=== PATIENT | male | born 1930 | race Caucasian/White ===

== ENCOUNTER 2017-03-27 11:59 | Observation (INO) | payer MEDICARE ==
[2017-03-27] MEDS ORDERED: Ondansetron INJ* 2 MG/ML VIAL IV ONE (12:34)
[2017-03-27] MEDS ORDERED: NS 0.9% 1000 ML* 1,000 ML IV ONE (12:34)
[2017-03-27 13:02] LABS: ABS Basophils 0 10^3/ul (0-0.2); ABS Eosinophils 0.1 10^3/ul (0-0.6); ABS Lymphocytes 1.3 10^3/ul (1.0-4.8); ABS Monocytes 0.8 10^3/ul (0-0.8); ABS Neutrophils 7.8 10^3/ul (1.5-7.7); ABS Nucleated RBC 0 10^3/ul; Eosinophil % 0.6 % (0-6); Hematocrit 34 % (42-52); Hemoglobin 11.7 g/dl (14.0-18.0); Lymphocyte % 13.3 % (25-47); Mean Corpuscular HGB Conc 35 g/dl (31-36); Mean Corpuscular Hemoglobin 32 pg (27-31); Mean Corpuscular Volume 91 fL (80-94); Mean Platelet Volume 7 um3 (7.4-10.4); Nucleated Red Blood Cells % 0; Platelet Count 196 10^3/ul (150-450); Red Blood Count 3.68 10^6/ul (4.0-5.4); Red Cell Distribution Width 13 % (10.5-15); White Blood Count 10.1 10^3/ul (3.5-10.8)
--- NOTE | 2017-03-27 13:20 | RAD ---
INDICATION: Weakness. COMPARISON: There are no prior studies available for comparison. TECHNIQUE: A portable view of the chest was obtained. FINDINGS: Cardiac and mediastinal contours appear to be within normal limits. There is elevation of the right hemidiaphragm. There is a faint infiltrate which projects over the right midlung. The lungs are otherwise clear. No pleural effusion is seen. IMPRESSION: SMALL RIGHT MIDLUNG INFILTRATE.
[2017-03-27] MEDS ORDERED: Azithromycin IV(*) 500 MG in NS 0.9% 250 ML* 250 ML IVPB ONE (13:38)
[2017-03-27] MEDS ORDERED: cefTRIAXone(*) 1 GM in NS 0.9% 50 ML* 50 ML IVPB ONE (13:38)
[2017-03-27 14:01] LABS: INR 0.98 (0.77-1.02)
[2017-03-27] MEDS ORDERED: Acetaminophen TAB* 325 MG PO PRN (14:08)
[2017-03-27 14:21] LABS: Urine Appearance Clear; Urine Blood 2+ (Negative); Urine Color Yellow; Urine Ketones Negative (Negative); Urine Protein 1+(30 mg/dL) (Negative); Urine Specific Gravity 1.024 (1.010-1.030); Urine Urobilinogen Negative (Negative)
--- NOTE | 2017-03-27 14:29 | ADMNOTE ---
Subjective Date of Service: 03/27/17 Interval History: Per [facility] director, pt ill about 36 hrs with diarrhea. No emesis. Several other residents ill with similar illness. Pt denies diarrhea, all c/o, states he is hungry. In fact he ate a sandwich here. Family History: Findings - unknown, pt not reliable Social History: Findings - 3 daughters, Lizzette is his SDM, Cody is contact: . Never smoked, no alcohol abuse. Retired project engineer chemicals. Past Medical History: Findings - ? surgery for skull fracture in remote past. Dementia, prostatism Review of Systems - Measurements Intake and Output: Intake and Output Last 24 Hours 03/25/17 03/26/17 03/27/17 03/28/17 06:59 06:59 06:59 06:59 Intake Total 1000 Balance 1000 Weight 175 lb Intake: IV Fluids 1000 - Review of Systems Constitutional Symptoms: Negative: Weight Gain, Weight Loss, Weakness, Fatigue, Fever, Night Sweats, Unexplained Falls, Other Dermatology: Positive: Normal HEENT: Positive: Normal Eyes: Positive: Normal Thyroid: Positive: Normal Pulmonary: Positive: Normal Cardiology: Positive: Normal Gastroenterology: Positive: Diarrhea Musculoskeletal: Negative: Joint Pain, Joint Stiffness, Arthritis, Osteoporosis, Low Back Pain , Sciatica, Joint Deformities, Kyphoscoliosis, Other Endocrinology: Positive: Normal Neurology: Positive: Normal Psychiatry: Positive: Normal Allergic/Immunologic: Negative: Hx Anaphylaxis, Hx Angioedema, Hx Environmental, Hx Seasonal, Athsma, Hx HIV, Immunocompromise, Swollen Glands LymphNodes, Other Objective Active Medications: Acetaminophen (Tylenol Tab*) 650 mg PO Q4H PRN PRN Reason: PAIN OR TEMPERATURE Cyanocobalamin (Vitamin B12 Tab*) 500 mcg PO DAILY YI Enoxaparin Sodium (Lovenox(*)) 40 mg SUBCUT Q24H YI Potassium Chloride/Dextrose (D5w 1/2 Ns Kcl 20 Meq 1000 Ml*) 1,000 mls @ 125 mls/hr IV PER RATE YI Non-Formulary Medication (Terazosin Hcl [Terazosin Hcl]) 2 mg PO DAILY YI Quetiapine Fumarate (Seroquel Tab*) 25 mg PO DAILY YI Quetiapine Fumarate (Seroquel Tab*) 50 mg PO BEDTIME YI Vital Signs - 8 hr 03/27/17 03/27/17 03/27/17 12:08 12:10 12:25 Temperature 98.9 F Pulse Rate 90 93 Respiratory 16 5 Rate Blood Pressure 96/72 115/67 (mmHg) O2 Sat by Pulse 97 98 Oximetry 03/27/17 03/27/17 03/27/17 12:30 12:46 13:00 Temperature Pulse Rate 88 82 Respiratory 19 Rate Blood Pressure 102/62 110/69 (mmHg) O2 Sat by Pulse 97 97 97 Oximetry 03/27/17 03/27/17 13:30 14:00 Temperature Pulse Rate 83 Respiratory 18 Rate Blood Pressure 113/64 110/62 (mmHg) O2 Sat by Pulse 97 Oximetry Oxygen Devices in Use Now: None Appearance: Alert, partly up on ED stretcher. Neutral affect. Looks comfortable. Eyes: No Scleral Icterus Ears/Nose/Mouth/Throat: Clear Oropharnyx, Mucous Membranes Moist Neck: NL Appearance and Movements; NL JVP, No Thyroid Enlargement, Masses Respiratory: Symmetrical Chest Expansion and Respiratory Effort, Clear to Auscultation, Clear to Percussion Cardiovascular: NL Sounds; No Murmurs; No JVD, RRR, No Edema, - Abdominal: NL Sounds; No Tenderness; No Distention, No Hepatosplenomegaly, - Extremities: No Edema, No Clubbing, Cyanosis, - Skin: No Rash or Ulcers, No Nodules or Sclerosis, - Neurological: NL Sensation - Gave his year, full name, occupation. Memory impaired for other questions. No tremor. ANGELES. Result Diagrams: 03/27/17 12:41 03/27/17 12:41 Microbiology and Other Data: Microbiology 03/27/17 12:51 Influenza Types A,B Antigen (KYLE) - Final Nasal Specimen received for Influenza A/B Molecular testing Assess/Plan/Problems-Billing Assessment: - Patient Problems (1) Gastroenteritis Current Visit: Yes Status: Acute Code(s): K52.9 - NONINFECTIVE GASTROENTERITIS AND COLITIS, UNSPECIFIED SNOMED Code(s): 80117038 Comment: IV fluids, BMP 03/28/17. Regular diet. (2) Dehydration Current Visit: Yes Status: Acute Code(s): E86.0 - DEHYDRATION SNOMED Code( s): 74218346 Comment: IV fluids, BMP 03/28/17. (3) Dementia Current Visit: Yes Status: Acute Code(s): F03.90 - UNSPECIFIED DEMENTIA WITHOUT BEHAVIORAL DISTURBANCE SNOMED Code(s): 76639019 Comment: Continue quetiapine.
--- NOTE | 2017-03-27 14:56 | ADMNOTE ---
Subjective Date of Service: 03/27/17 Interval History: ADMISSION HISTORY AND PHYSICAL EXAM: Allergies Allergy/AdvReac Type Severity Reaction Status Date / Time No Known Allergies Allergy Verified 03/27/17 12:14 Home Medications Medication Instructions Recorded Confirmed Type Acetaminophen TAB* [Tylenol TAB*] 650 mg PO Q4H PRN 03/27/17 03/27/17 History Cyanocobalamin TAB* [Vitamin B12 500 mcg PO DAILY 03/27/17 03/27/17 History TAB*] Dextromethorphan-Guaifenesin 10 ml PO Q4H PRN 03/27/17 03/27/17 History [Dextromethorphan/Guaifene 10-100 mg/5Ml] Quetiapine Fumarate [Seroquel] 25 mg PO DAILY 03/27/17 03/27/17 History Quetiapine Fumarate [Seroquel] 50 mg PO BEDTIME 03/27/17 03/27/17 History Terazosin HCl 2 mg PO DAILY 03/27/17 03/27/17 History Zinc Oxide (Topical) [Desitin] 1 applic TOPICAL BID 03/27/17 03/27/17 History Per [facility] director, pt ill about 36 hrs with diarrhea. No emesis. Several other residents ill with similar illness. Pt denies diarrhea, all c/o, states he is hungry. In fact he ate half of a sandwich here. Family History: Findings - unknown, pt not reliable Social History: Findings - 3 daughters, Lizzette is his SDM, Cody is contact: [phone]. Never smoked, no alcohol abuse. Retired chemical engineering technologist. Past Medical History: Findings - ? surgery for skull fracture in remote past. Dementia, prostatism Review of Systems - Measurements Intake and Output: Intake and Output Last 24 Hours 03/25/17 03/26/17 03/27/17 03/28/17 06:59 06:59 06:59 06:59 Intake Total 1000 Balance 1000 Weight 175 lb Intake: IV Fluids 1000 Objective Active Medications: Acetaminophen (Tylenol Tab*) 650 mg PO Q4H PRN PRN Reason: PAIN OR TEMPERATURE Cyanocobalamin (Vitamin B12 Tab*) 500 mcg PO DAILY YI Enoxaparin Sodium (Lovenox(*)) 40 mg SUBCUT Q24H YI Potassium Chloride/Dextrose (D5w 1/2 Ns Kcl 20 Meq 1000 Ml*) 1,000 mls @ 125 mls/hr IV PER RATE YI Non-Formulary Medication (Terazosin Hcl [Terazosin Hcl]) 2 mg PO DAILY YI Quetiapine Fumarate (Seroquel Tab*) 25 mg PO DAILY YI Quetiapine Fumarate (Seroquel Tab*) 50 mg PO BEDTIME YI Vital Signs - 8 hr 03/27/17 03/27/17 03/27/17 12:08 12:10 12:25 Temperature 98.9 F Pulse Rate 90 93 Respiratory 16 5 Rate Blood Pressure 96/72 115/67 (mmHg) O2 Sat by Pulse 97 98 Oximetry 03/27/17 03/27/17 03/27/17 12:30 12:46 13:00 Temperature Pulse Rate 88 82 Respiratory 19 Rate Blood Pressure 102/62 110/69 (mmHg) O2 Sat by Pulse 97 97 97 Oximetry 03/27/17 03/27/17 03/27/17 13:30 14:00 14:30 Temperature 98.6 F Pulse Rate 83 85 Respiratory 18 14 Rate Blood Pressure 113/64 110/62 115/73 (mmHg) O2 Sat by Pulse 97 99 Oximetry Oxygen Devices in Use Now: None Result Diagrams: 03/27/17 12:41 03/27/17 12:41 Microbiology and Other Data: Microbiology 03/27/17 12:51 Influenza Types A,B Antigen (KYLE) - Final Nasal Specimen received for Influenza A/B Molecular testing Assess/Plan/Problems-Billing Assessment: - Patient Problems (1) Gastroenteritis Current Visit: Yes Status: Acute Code(s): K52.9 - NONINFECTIVE GASTROENTERITIS AND COLITIS, UNSPECIFIED SNOMED Code(s): 38850431 Comment: IV fluids, BMP 03/28/17. Regular diet. (2) Dehydration Current Visit: Yes Status: Acute Code(s): E86.0 - DEHYDRATION SNOMED Code( s): 02908136 Comment: IV fluids, BMP 03/28/17. (3) Dementia Current Visit: Yes Status: Acute Code(s): F03.90 - UNSPECIFIED DEMENTIA WITHOUT BEHAVIORAL DISTURBANCE SNOMED Code(s): 85240939 Comment: Continue quetiapine.
[2017-03-27] MEDS ORDERED: Enoxaparin(*) 40 MG/0.4 ML SYR SUBCUT SCH (15:00)
--- NOTE | 2017-03-27 15:22 | ED ---
Piotr Guzmán Tecjoon, scribed for Keyshawn Watson MD on 03/27/17 at 1229 . GI/ HPI - HPI Summary HPI Summary: This patient is a 86 year old male BIBA to [facility] accompanied by Assisted Living apron worker with a chief complaint of stomach bug since 2 days ago. apron worker states that patient has not been acting himself and stays in bed instead of moving around. Symptoms aggravated by nothing. Symptoms alleviated by nothing. Patient additionally reports dry mouth, vomiting. Patient denies chest pain, SOB, abd pain, fevers, chills, weakness, headache, dysuria. Patient has a history of dementia. HPI Limited due to Level 5 Caveat: Dementia - History of Current Complaint Chief Complaint: EDNauseaVomitDiarrh Time Seen by Provider: 03/27/17 12:14 Stated Complaint: GENERAL ILLNESS Hx Obtained From: Patient, Family/Accounts Payable Accountant - Assisted Living Facility Hx From Patient Unobtainable Due To: Dementia Onset/Duration: Started Days Ago - 2 Timing: Constant Current Severity: Mild Pain Intensity: 0 - /10 Associated Signs and Symptoms: Positive: Negative - chest pain, SOB, abd pain, fevers, chills, weakness, headache, dysuria, Other: - dry mouth, vomiting Aggravating Factor(s): Nothing Alleviating Factor(s): Nothing - Allergy/Home Medications Allergies/Adverse Reactions: Allergies Allergy/AdvReac Type Severity Reaction Status Date / Time No Known Allergies Allergy Verified 03/27/17 12:14 Home Medications: Home Medications Acetaminophen TAB* [Tylenol TAB*] 650 mg PO Q4H PRN 03/27/17 [History Confirmed 03/27/17] Cyanocobalamin TAB* [Vitamin B12 TAB*] 500 mcg PO DAILY 03/27/17 [History Confirmed 03/27/17] Dextromethorphan-Guaifenesin [Dextromethorphan/Guaifene 10-100 mg/5Ml] 10 ml PO Q4H PRN 03/27/17 [History Confirmed 03/27/17] Quetiapine Fumarate [Seroquel] 25 mg PO DAILY 03/27/17 [History Confirmed ] Quetiapine Fumarate [Seroquel] 50 mg PO BEDTIME 03/27/17 [History Confirmed 09/06] Terazosin HCl 2 mg PO DAILY 03/27/17 [History Confirmed 03/27/17] Zinc Oxide (Topical) [Desitin] 1 applic TOPICAL BID 03/27/17 [History Confirmed 03/27/17] PMH/Surg Hx/FS Hx/Imm Hx Previously Healthy: No - PMHx Limited due to Level 5 Caveat: Dementia Neurological History: Reports: Hx Dementia Infectious Disease History: Unable to Obtain/Confirm Infectious Disease History: Denies: Traveled Outside the [place] in Last 30 Days - Family History Family History: FHx Limited due to Level 5 Caveat: Dementia - Social History Occupation: Disabled Lives: Assisted Living Alcohol Use: None Hx Substance Use: No Substance Use Type: Reports: None Smoking Status (MU): Unknown if Ever Smoked Review of Systems Negative: Fever, Chills Positive: Other - dry mouth Negative: Shortness Of Breath Positive: Vomiting. Negative: Abdominal Pain Negative: dysuria Negative: Headache, Weakness All Other Systems Reviewed And Are Negative: No - Comments Additional Review of Systems Comments: ROS Limited due to Level 5 Caveat: Dementia Physical Exam - Summary Physical Exam Summary: General: well-appearing, no pain distress Skin: warm, color reflects adequate perfusion, dry Head: normal Eyes: EOMI, TOMY ENT: Oral Mucosa dry. Neck: supple, nontender Respiratory: CTA, breath sounds present Cardiovascular: RRR Abdomen: soft, nontender Bowel: present Musculoskeletal: normal, strength/ROM intact Neurological: Patient has dementia Psychological: affect/mood appropriate Triage Information Reviewed: No Vital Signs On Initial Exam: Initial Vitals Temp Pulse Resp BP Pulse Ox 98.9 F 90 16 96/72 97 03/27/17 12:08 03/27/17 12:08 03/27/17 12:08 03/27/17 12:08 03/27/17 12:08 Vital Signs Reviewed: No Completion Of Physical Exam Limited Due To: Dementia, Level 5 Diagnostics - Vital Signs Vital Signs Temp Pulse Resp BP Pulse Ox 03/27/17 12:08 98.9 F 90 16 96/72 97 - Laboratory Lab Results: Lab Results 03/27/17 03/27/17 03/27/17 Range/Units 12:41 12:41 12:41 WBC (3.5-10.8) 10^3/ul RBC (4.0-5.4) 10^6/ul Hgb (14.0-18.0) g/dl Hct (42-52) % MCV (80-94) fL MCH (27-31) pg MCHC (31-36) g/dl RDW (10.5-15) % Plt Count (150-450) 10^3/ul MPV (7.4-10.4) um3 Neut % (Auto) (38-83) % Lymph % (Auto) (25-47) % Maverick % (Auto) (1-9) % Eos % (Auto) (0-6) % Baso % (Auto) (0-2) % Absolute Neuts (auto) (1.5-7.7) 10^3/ul Absolute Lymphs (auto) (1.0-4.8) 10^3/ul Absolute Monos (auto) (0-0.8) 10^3/ul Absolute Eos (auto) (0-0.6) 10^3/ul Absolute Basos (auto) (0-0.2) 10^3/ul Absolute Nucleated RBC 10^3/ul Nucleated RBC % INR (Anticoag Therapy) 0.98 (0.77-1.02) APTT 23.6 L (26.0-36.3) seconds Sodium 142 (133-145) mmol/L Potassium 3.0 L (3.5-5.0) mmol/L Chloride 115 H (101-111) mmol/L Carbon Dioxide 21 L (22-32) mmol/L Anion Gap 6 (2-11) mmol/L BUN 41 H (6-24) mg/dL Creatinine 1.28 H (0.67-1.17) mg/dL Est GFR ( Amer) 68.2 (>60) Est GFR (Non-Af Amer) 53.0 (>60) BUN/Creatinine Ratio 32.0 H (8-20) Glucose 110 H (70-100) mg/dL Lactic Acid (0.5-2.0) mmol/L Calcium 8.8 (8.6-10.3) mg/dL Magnesium 2.4 (1.9-2.7) mg/dL Total Bilirubin 0.60 (0.2-1.0) mg/dL AST 46 H (13-39) U/L ALT 22 (7-52) U/L Alkaline Phosphatase 44 (34-104) U/L Troponin I 0.09 H* (<0.04) ng/mL C-Reactive Protein 63.30 H (< 5.00) mg/L B-Natriuretic Peptide 96 ( - 100) pg/mL Total Protein 6.2 L (6.4-8.9) g/dL Albumin 3.3 (3.2-5.2) g/dL Globulin 2.9 (2-4) g/dL Albumin/Globulin Ratio 1.1 (1-3) Lipase 52 (11.0-82.0) U/L TSH 0.89 (0.34-5.60) mcIU/mL Urine Color Urine Appearance Urine pH (5-9) Ur Specific [place] (1.010-1.030) Urine Protein (Negative) Urine Ketones (Negative) Urine Blood (Negative) Urine Nitrate (Negative) Urine Bilirubin (Negative) Urine Urobilinogen (Negative) Ur Leukocyte Esterase (Negative) Urine WBC (Auto) (Absent) Urine RBC (Auto) (Absent) Ur Squamous Epith Cells (Absent) Urine Bacteria (Absent) Urine Glucose (Negative) Urine Ascorbic Acid (Negative) Influenza A (Rapid) (Negative) Influenza B (Rapid) (Negative) 03/27/17 03/27/17 03/27/17 Range/Units 12:41 12:41 13:08 WBC 10.1 (3.5-10.8) 10^3/ul RBC 3.68 L (4.0-5.4) 10^6/ul Hgb 11.7 L (14.0-18.0) g/dl Hct 34 L (42-52) % MCV 91 (80-94) fL MCH 32 H (27-31) pg MCHC 35 (31-36) g/dl RDW 13 (10.5-15) % Plt Count 196 (150-450) 10^3/ul MPV 7 L (7.4-10.4) um3 Neut % (Auto) 77.8 (38-83) % Lymph % (Auto) 13.3 L (25-47) % Maverick % (Auto) 8.1 (1-9) % Eos % (Auto) 0.6 (0-6) % Baso % (Auto) 0.2 (0-2) % Absolute Neuts (auto) 7.8 H (1.5-7.7) 10^3/ul Absolute Lymphs (auto) 1.3 (1.0-4.8) 10^3/ul Absolute Monos (auto) 0.8 (0-0.8) 10^3/ul Absolute Eos (auto) 0.1 (0-0.6) 10^3/ul Absolute Basos (auto) 0 (0-0.2) 10^3/ul Absolute Nucleated RBC 0 10^3/ul Nucleated RBC % 0 INR (Anticoag Therapy) (0.77-1.02) APTT (26.0-36.3) seconds Sodium (133-145) mmol/L Potassium (3.5-5.0) mmol/L Chloride (101-111) mmol/L Carbon Dioxide (22-32) mmol/L Anion Gap (2-11) mmol/L BUN (6-24) mg/dL Creatinine (0.67-1.17) mg/dL Est GFR ( Amer) (>60) Est GFR (Non-Af Amer) (>60) BUN/Creatinine Ratio (8-20) Glucose (70-100) mg/dL Lactic Acid 1.1 (0.5-2.0) mmol/L Calcium (8.6-10.3) mg/dL Magnesium (1.9-2.7) mg/dL Total Bilirubin (0.2-1.0) mg/dL AST (13-39) U/L ALT (7-52) U/L Alkaline Phosphatase (34-104) U/L Troponin I (<0.04) ng/mL C-Reactive Protein (< 5.00) mg/L B-Natriuretic Peptide ( - 100) pg/mL Total Protein (6.4-8.9) g/dL Albumin (3.2-5.2) g/dL Globulin (2-4) g/dL Albumin/Globulin Ratio (1-3) Lipase (11.0-82.0) U/L TSH (0.34-5.60) mcIU/mL Urine Color Urine Appearance Urine pH (5-9) Ur Specific [place] (1.010-1.030) Urine Protein (Negative) Urine Ketones (Negative) Urine Blood (Negative) Urine Nitrate (Negative) Urine Bilirubin (Negative) Urine Urobilinogen (Negative) Ur Leukocyte Esterase (Negative) Urine WBC (Auto) (Absent) Urine RBC (Auto) (Absent) Ur Squamous Epith Cells (Absent) Urine Bacteria (Absent) Urine Glucose (Negative) Urine Ascorbic Acid (Negative) Influenza A (Rapid) Negative (Negative) Influenza B (Rapid) Negative (Negative) 03/27/17 Range/Units 13:50 WBC (3.5-10.8) 10^3/ul RBC (4.0-5.4) 10^6/ul Hgb (14.0-18.0) g/dl Hct (42-52) % MCV (80-94) fL MCH (27-31) pg MCHC (31-36) g/dl RDW (10.5-15) % Plt Count (150-450) 10^3/ul MPV (7.4-10.4) um3 Neut % (Auto) (38-83) % Lymph % (Auto) (25-47) % Maverick % (Auto) (1-9) % Eos % (Auto) (0-6) % Baso % (Auto) (0-2) % Absolute Neuts (auto) (1.5-7.7) 10^3/ul Absolute Lymphs (auto) (1.0-4.8) 10^3/ul Absolute Monos (auto) (0-0.8) 10^3/ul Absolute Eos (auto) (0-0.6) 10^3/ul Absolute Basos (auto) (0-0.2) 10^3/ul Absolute Nucleated RBC 10^3/ul Nucleated RBC % INR (Anticoag Therapy) (0.77-1.02) APTT (26.0-36.3) seconds Sodium (133-145) mmol/L Potassium (3.5-5.0) mmol/L Chloride (101-111) mmol/L Carbon Dioxide (22-32) mmol/L Anion Gap (2-11) mmol/L BUN (6-24) mg/dL Creatinine (0.67-1.17) mg/dL Est GFR ( Amer) (>60) Est GFR (Non-Af Amer) (>60) BUN/Creatinine Ratio (8-20) Glucose (70-100) mg/dL Lactic Acid (0.5-2.0) mmol/L Calcium (8.6-10.3) mg/dL Magnesium (1.9-2.7) mg/dL Total Bilirubin (0.2-1.0) mg/dL AST (13-39) U/L ALT (7-52) U/L Alkaline Phosphatase (34-104) U/L Troponin I (<0.04) ng/mL C-Reactive Protein (< 5.00) mg/L B-Natriuretic Peptide ( - 100) pg/mL Total Protein (6.4-8.9) g/dL Albumin (3.2-5.2) g/dL Globulin (2-4) g/dL Albumin/Globulin Ratio (1-3) Lipase (11.0-82.0) U/L TSH (0.34-5.60) mcIU/mL Urine Color Yellow Urine Appearance Clear Urine pH 6.0 (5-9) Ur Specific [place] 1.024 (1.010-1.030) Urine Protein 1+(30 mg/dl) H (Negative) Urine Ketones Negative (Negative) Urine Blood 2+ H (Negative) Urine Nitrate Negative (Negative) Urine Bilirubin Negative (Negative) Urine Urobilinogen Negative (Negative) Ur Leukocyte Esterase Negative (Negative) Urine WBC (Auto) Absent (Absent) Urine RBC (Auto) 1+(3-5/hpf) H (Absent) Ur Squamous Epith Cells Present H (Absent) Urine Bacteria Absent (Absent) Urine Glucose Negative (Negative) Urine Ascorbic Acid * H (Negative) Influenza A (Rapid) (Negative) Influenza B (Rapid) (Negative) Result Diagrams: 03/27/17 12:41 03/27/17 12:41 Lab Statement: Any lab studies that have been ordered have been reviewed, and results considered in the medical decision making process. - Radiology CXR Xray Interpretation: Positive (See Comments) - IMPRESSION: SMALL RIGHT MIDLUNG INFILTRATE. ED physician has reviewed this radiology report. Radiology Interpretation Completed By: Radiologist - EKG 1240 Cardiac Rate: NL EKG Rhythm: Sinus Rhythm - 88 BPM EKG Interpretation: NSR (88 BPM), RBBB, no ectopy, flipped Ts in anterior leads GIGU Course/Dx - Course Course Of Treatment: This patient is a 86 year old BIBA to [facility] accompanied by Assisted Living apron worker with a chief complaint of stomach bug since 2 days ago. apron worker states that patient has not been acting himself and stays in bed instead of moving around. Symptoms aggravated by nothing. Symptoms alleviated by nothing. Patient additionally reports dry mouth, vomiting. Patient denies chest pain, SOB, abd pain, fevers, chills, weakness, headache, dysuria. Patient has a history of dementia. An EKG, taken 1240, reveals NSR (88 BPM), RBBB, no ectopy, flipped Ts in anterior leads. CXR reveals, per radiologist, IMPRESSION: SMALL RIGHT MIDLUNG INFILTRATE. ED physician has reviewed this radiology report. Bloodwork Obtained. Urinalysis Obtained. Medications reviewed. In the ED course the patient was given Acetaminophen, Cyanocobalamin, Enoxaparin, Zofran, Rocephin, Zithromax. PATIENT DENIES ANY CHEST PAIN. NO OLD TROPONINS OR EKGS AVAILABLE. DISCUSSED ABX FOR INFILTRATE SEEN ON CXR WITH DR GRANT; NO ABX AT THIS TIME BECAUSE PT DOES NOT HAVE OBVIOUS PNEUMONIA SX AND ABX MAY WORSEN DIARRHEA. ADMIT HOSPITALIST. CRITICAL CARE TIME LESS THAN 30 MINUTES. - Diagnoses Provider Diagnoses: Weakness, Dehydration, Elevated troponin Discharge - Discharge Plan Condition: Stable Disposition: ADMITTED TO [facility] Referrals: Jacqui Willson MD [Primary Care Provider] - The documentation as recorded by the Piotr sanon Tecjoon accurately reflects the service I personally performed and the decisions made by me, Keyshawn Watson MD.
[2017-03-27] MEDS: D5W 1/2 NS KCl 20 Meq 1000 ML* 1,000 ML IV SCH (18:19)
[2017-03-27] MEDS ORDERED: QUEtiapine TAB* 25 MG PO SCH (21:00)
[2017-03-28] MEDS: D5W 1/2 NS KCl 20 Meq 1000 ML* 1,000 ML IV SCH (03:10)
[2017-03-28 07:36] LABS: EGFR Non-African American 71.3 (>60)
[2017-03-28 08:30] VITALS: BP 115/59
[2017-03-28] MEDS ORDERED: Terazosin CAP* 1 MG PO SCH (09:00)
[2017-03-28] MEDS ORDERED: QUEtiapine TAB* 25 MG PO SCH (09:00)
[2017-03-28] MEDS ORDERED: Cyanocobalamin TAB* 500 MCG PO SCH (09:00)
--- NOTE | 2017-03-29 05:14 | DS ---
CC: Dr. Willson DISCHARGE SUMMARY: DATE OF ADMISSION: DATE OF DISCHARGE: 03/28/17 HOSPITAL COURSE: This 86-year-old man was brought to the emergency room by the [facility] staff. He had had diarrhea for about a day and a half. He did not have any emesis. The director with whom I spoke stated that several other residents who are with similar illness there. The patient himself in the emergency room denied symptoms. I am not sure he could remember his symptoms. He was hungry and did eat a half of sandwich while he was there. Laboratory data showed evidence of dehydration with mild change in his BUN and creatinine from previo us values. His potassium was 3.0. He received intravenous fluids overnight. He had no more diarrhea in the hospital. His lab results w ere essentially normal the next morning. The patient will go back to [facility] on the same medications. I note he did receive one dose of ceftriaxone and azithromycin in the emergency room. However, I do not think the chest x-ray was convincing at all for pneumonia and that did not fit the clinical pictu re in any way. FINAL DIAGNOSES: 1. Gastroenteritis. 2. Dehydration. 3. Dementia. DISCHARGE MEDICATIONS: 1. Dextromethorphan/guaifenesin 10 mL q.4 hours p.r.n. 2. Zinc oxide as prescribed. 3. Vitamin B12 500 mcg daily. 4. Terazosin 2 mg daily. 5. Quetiapine 50 mg h.s. and 25 mg in the morning. 6. Acetaminophen 650 mg every 4 hours p.r.n. [id number]/[facility] #: [id number]
== END 2017-03-28 14:10 ==
LOC: ED 11:59 → MED 16:56
PROVIDERS: ADMIT Internal Medicine; ATTEND Internal Medicine
DX: K52.9 Noninfective gastroenteritis and colitis, unspecified (principal); E86.0 Dehydration; F03.90 Unspecified dementia, unspecified severity, without behavioral disturbance, psychotic disturbance, mood disturbance, and anxiety; Z79.899 Other long term (current) drug therapy; R74.8 Abnormal levels of other serum enzymes; I45.10 Unspecified right bundle-branch block; R19.7 Diarrhea, unspecified
CPT/HCPCS: 36415; 71045; 80048; 80053; 81003; 81015; 83605; 83690; 83735; 83880; 84443; 84484; 85025; 85610; 85730; 86140; 87502; 93005; 96361; 96372; 96374; 99285; A9270-GY; G0378; J0696; J1650; J2405